=== PATIENT | female | born 1945 | race Two or more races ===

== ENCOUNTER 2025-06-11 11:24 | Inpatient (IN) | payer OTHER ==
[~2025-06-11] VITALS: Ht 165.1 cm; Wt 68.3 kg
--- NOTE | 2025-06-11 11:39 | ED.PDOC ---
Back pain HPI HPI Comments This is a 80 year old female HAIRA presenting to the ED with chief complaint of lower back pain s/p fall. EMS reports patient had gotten out of bed this morning and slipped, causing her to fall onto her bottom and then hit the back of her head against the floor. EMS relays that the patient is now experiencing lower back pain with associated abdominal pain. EMS states patient was able to ambulate with some assistance in getting up. Patient denies any LOC, dizziness, chest pain, headache, N/V, or SOB. 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: Denies all WOOD 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 Hx Family History Family History: Reviewed,noncontributory to illness Social History Smoker: Non-Smoker Alcohol: Denies ETOH Use Drugs: Denies Drug Use Lives In: Home Constitutional: denies: chills, diaphoresis, fatigue, fever, malaise, sweats, weakness, others EENTM: denies: blurred vision, double vision, ear bleeding, ear discharge, ear drainage, ear pain, ear ringing, eye pain, eye redness, hearing loss, mouth pain, mouth swelling, nasal discharge, nose bleeding, nose congestion, nose pain, photophobia, tearing, throat pain, throat swelling, voice changes, others Respiratory: denies: cough, hemoptysis, orthopnea, SOB at rest, shortness of breath, SOB with excertion, stridor, wheezing, others Cardiovascular: denies: chest pain, dizzy spells, diaphoresis, Dyspnea on exertion, edema, irregular heart beat, left arm pain, lightheadedness, palpitations, PND, syncope, others Gastrointestinal: reports: abdominal pain; denies: abdomen distended, blood streaked bowels, constipated, diarrhea, dysphagia, difficulty swallowing, hematemesis, melena, nausea, poor appetite, poor fluid intake, rectal bleeding, rectal pain, vomiting, others Genitourinary: denies: abnormal vagina bleeding, burning, dyspareunia, dysuria, flank pain, frequency, hematuria, incontinence, pain, , vagina discharge, urgency, others Neurological: denies: dizziness, fainting, headache, left sided numbness, left sided weakness, numbness, paresthesia, pre-existing deficit, right sided numb ness, right sided weakness, seizure, speech problems, tingling, tremors, weakness, others Musculoskeletal: reports: back pain; denies: gout, joint pain, joint swelling, muscle pain, muscle stiffness, neck pain, others Integumetry: denies: bruises, change in color, change in hair/nails, dryness, laceration, lesions, lumps, rash, wounds, others Allergic/Immunocompromised: denies: Difficulty Healing, Frequent Infections, Hives, Itching, others Hematologic/Lymphatic: denies: anemia, blood clots, easy bleeding, easy bruising, swollen glands, others Endocrine: denies: excessive hunger, excessive sweating, excessive thirst, excessive urination, flushing, intolerance to cold, intolerance to heat, unexplained weight gain, unexplained weight loss, others Psychiatric: denies: anxiety, bipolar disorder, depression, hopeless, panic disorder, schizophrenia, sleepless, suicidal, others All Other Systems: Reviewed and Negative Physical Exam General Appearance: No Apparent Distress, Obese HEENT: Normal ENT Inspection, Pharynx Normal, TMs Normal Neck: Full Range of Motion, Non-Tender, Normal, Normal Inspection Respiratory: Chest Non-Tender, Lungs Clear, No Accessory Muscle Use, No Respiratory Distress, Normal Breath Sounds Cardiovascular: No Edema, No JVD, No Murmur, No Gallop, Normal Peripheral Pulses, Regular Rate/Rhythm Breast Exam: Deferred Gastrointestinal: No Organomegaly, Non Tender, No Pulsatile Mass, Normal Bowel Sounds, Soft Genitalia: Deferred Pelvic: Deferred Rectal: Deferred Extremities: No calf tenderness, Normal capillary refill, No pedal edema Musculoskeletal : Location: Bilateral Extremity Location: Back Apperance: Limited ROM, Tenderness: Moderate Neurologic: Alert, coconut jelly roller II-XII nml as Tested, No Motor Deficits, Normal Affect, Normal Mood, No Sensory Deficits Cerebellar Function: Normal Reflexes: Normal Skin: Dry, Normal Color, Warm Lymphatic: No Adenopathy Was a procedure done? Was a procedure done?: No Back Pain Differential Dx Differential Diagnosis: Fracture, Musculoskeletal Pain, Pancreatits, Pyelonephritis, Urolithiasis X-Ray, Labs, Meds, VS Vital Signs Date Time Temp Pulse Resp B/P (MAP) Pulse Ox O2 Delivery O2 Flow Rate FiO2 06/11/25 14:28 98.4 95 16 166/75 (105) 98 98.4 06/11/25 11:49 98.0 106 20 134/88 99 98.0 Lab Test 06/11/25 11:50 Range/Units White Blood Count 5.3 4.4-10.8 10^3/uL Red Blood Count 5.04 4.0-5.20 10^6/uL Hemoglobin 15.8 12.2-16.2 g/dL Hematocrit 46.8 H 36.0-46.0 % Mean Corpuscular Volume 92.9 80.0-100.0 fL Mean Corpuscular Hemoglobin 31.3 28.0-32.0 pg Mean Corpuscular Hemoglobin Concent 33.7 32.0-36.0 g/dL Red Cell Distribution Width 13.8 11.8-14.3 % Platelet Count 163 140-450 10^3/uL Mean Platelet Volume 9.2 6.9-10.8 fL Neutrophils (%) (Auto) 72.4 37.0-80.0 % Lymphocytes (%) (Auto) 21.6 10.0-50.0 % Monocytes (%) (Auto) 4.8 0.0-12.0 % Eosinophils (%) (Auto) 0.8 0.0-7.0 % Basophils (%) (Auto) 0.4 0.0-2.0 % Neutrophils # (Auto) 3.8 1.6-8.6 10 ^3/uL Lymphocytes # (Auto) 1.1 0.4-5.4 10 ^3/uL Monocytes # (Auto) 0.3 0-1.3 10 ^3/uL Eosinophils # (Auto) 0 0-0.8 10 ^3/uL Basophils # (Auto) 0 0-0.2 10 ^3/uL Nucleated Red Blood Cells 0.4 % Sodium Level 146 H 136-145 mmol/L Potassium Level 3.8 3.5-5.1 mmol/L Chloride Level 108 H 98-107 mmol/L Carbon Dioxide Level 27 20-31 mmol/L Anion Gap 11 5-15 Blood Urea Nitrogen 13 9-23 mg/dL Creatinine 1.07 H 0.550-1.02 mg/dL Glomerular Filtration Rate Calc 52 >90 mL/min BUN/Creatinine Ratio 12.1 10.0-20.0 Serum Glucose 139 H 74-106 mg/dL Calcium Level 10.6 H 8.7-10.4 mg/dL Head CT indicates: No acute traumatic intracranial abnormality. Hypoattenuation in the right internal capsule / caudate may represent an age indeterminate infarct. Clinical correlation advised. LS-Spine CT indicates: 1. No fracture of the lumbar spine. 2. Degenerative disc disease and facet arthropathy with significant neural foraminal stenosis on the right at L3-L4 and L5-SThese findings May correspond to right lower extremity radicular symptoms in the L3 and L5 nerve root distributions. 3. Moderate spinal canal stenosis at L2-L3, L3-L4, and L4-L5. 4. Enlarged fibroid uterus. 5. Fecal retention in the colon suggestive of constipation. 6. Atherosclerotic vascular disease. The patient is being admitted at this time. At this time there is no sign of any fractures but there is a concern of the hypoattenuation in the right internal capsule A neurology consult will be obtained. The patient's CBC and chemistry panel are within normal limits except for creatinine of 1.07 The patient has no sign of any deficits. Images Reviewed?: Images reviewed and evaluated by me Time of 1ST Reevaluation: 15:16 Reevaluation 1ST: Unchanged Patient Education/Counseling: Diagnosis, Treatment, Prognosis Family Education/Counseling: No Family Present SEPSIS Sepsis Screen Physician Orders Electrocardigram (06/11/25 11:33) Head Without Contrast (06/11/25 11:33) Ls Spine Wo Contrast (06/11/25 11:33) Vital Signs Date Time Temp Pulse Resp B/P (MAP) Pulse Ox O2 Delivery O2 Flow Rate FiO2 06/11/25 14:28 98.4 95 16 166/75 (105) 98 98.4 06/11/25 11:49 98.0 106 20 134/88 99 98.0 Laboratory Tests Test 06/11/25 11:50 White Blood Count 5.3 10^3/uL (4.4-10.8) Departure 1 Departure Time of Disposition: 15:16 Impression: Primary Impression: History of fall Additional Impression: Autonomic dysfunction Disposition: ADMITTED INPATIENT Admit to: Med Surg Condition: Fair Critical Care Note Critical Care Time?: No Stability Stability form required: Yes Unstable for transfer: ED Physician Assesment (Clinical assesment) Heart Score Heart Score: Heart Score Response (Comments) Value History N/A 0 EKG N/A 0 Age N/A 0 Risk Factors N/A 0 Troponin N/A 0 Total 0 I personally scribed for DEBBI ENRIQUEZ MD ([email or web address]) on 06/11/25 at 11:39. Electronically submitted by Emeka El ([email or web address]). I personally scribed for DEBBI ENRIQUEZ MD ([email or web address]) on 06/11/25 at 13:48. Electronically submitted by Emeka El ([email or web address]). DEBBI ENRIQUEZ MD Jun 11, 2025 11:39
[2025-06-11 12:11] LABS: Hematocrit 46.8 % (36.0-46.0); Hemoglobin 15.8 g/dL (12.2-16.2); Mean Corpuscular Hemoglobin 31.3 pg (28.0-32.0); Mean Corpuscular Volume 92.9 fL (80.0-100.0); Nucleated Red Blood Cells % 0.4 %
[2025-06-11 12:24] LABS: Potassium 3.8 mmol/L (3.5-5.1)
[2025-06-11 12:25] LABS: Anion Gap 11 (5-15); Carbon Dioxide 27 mmol/L (20-31)
[2025-06-11 12:30] LABS: BUN/Creatinine Ratio 12.1 (10.0-20.0); Blood Urea Nitrogen 13 mg/dL (9-23)
[2025-06-11 12:36] LABS: Calcium 10.6 mg/dL (8.7-10.4); Chloride 108 mmol/L (98-107); Glucose 139 mg/dL (74-106); Sodium 146 mmol/L (136-145)
--- NOTE | 2025-06-11 12:48 | DVH ---
EXAM: CT HEAD WITHOUT CONTRAST INDICATION: fall TECHNIQUE: CT of the head without intravenous contrast. Radiation Dose : 1. Head: CT Dose: CTDI volume is 31.6 mGy. Dose-length product is 2566 mGy*cm The dose indicators for CT are the volume Computed Tomography (CT) Dose Index (CTDIvol) and the Dose Length Product (DLP), and are measured in units of mGy and mGy-cm, respectively. These indicators are not patient dose, but values generated from the CT scanner acquisition factors. The report includes radiation exposure data for exposures received during this examination. COMPARISON: None FINDINGS: There is no evidence of acute intracranial hemorrhage, extra-axial collection, mass effect, midline s hift, herniation or hydrocephalus. The ventricles, sulci and cisterns are age appropriate. Hypoattenuation in the right internal capsule/ caudate. Patchy periventricular and subcortical white matter hypoattenuation is nonspecific but may be related to small vessel ischemic disease. The visualized paranasal sinuses and mastoid air cells are clear. The surrounding soft tissues and osseous structures are unremarkable. IMPRESSION: No acute traumatic intracranial abnormality. Hypoattenuation in the right internal capsule / caudate may represent an age indeterminate infarct. Clinical correlation advised. Radiation optimization: All CT scans at this facility use at least one of these dose optimization dinorah hniques: automated exposure control mA and/or kV adjustment per patient size (includes targeted exam s where dose is matched to clinical indication) or iterative reconstruction.
--- NOTE | 2025-06-11 12:56 | DVH ---
EXAM: CT LS SPINE WO CONTRAST HISTORY: fall COMPARISON: None TECHNIQUE: Noncontrast axial CT images of the lumbar spine were performed. Sagittal and coronal refor matted images were obtained. This CT exam was performed using one or more of the following dose reduc tion techniques: Automated exposure control, adjustment of the mA and/or kv according to patient size , or the use of iterative reconstruction techniques. Radiation Dose: CT Dose: CTDI volume is 69.52 mGy. Dose-length product is 1183.87 mGy*cm FINDINGS: No fracture or listhesis are identified about the lumbar spine. There is [id number] degenerativ e disc disease and facet arthropathy with moderate spinal canal stenosis at L2-L3, L3-L4, and L4-L5. There is significant neural foraminal stenosis at L3-L4 on the right and L5-S1 on the right. The uter us is enlarged with multiple calcified lobulated fibroids present. There are bilateral posterolateral Hutch diverticula. There are atherosclerotic calcifications of the abdominal aorta and major branche s. There is fecal retention in the colon better appreciated on the brewery worker film. IMPRESSION: 1. No fracture of the lumbar spine. 2. Degenerative disc disease and facet arthropathy with significant neural foraminal stenosis on the right at L3-L4 and L5-SThese findings May correspond to right lower extremity radicular symptoms in t he L3 and L5 nerve root distributions. 3. Moderate spinal canal stenosis at L2-L3, L3-L4, and L4-L5. 4. Enlarged fibroid uterus. 5. Fecal retention in the colon suggestive of constipation. 6. Atherosclerotic vascular disease.
[2025-06-11] MEDS ORDERED: ONDANSETRON HCL 4 MG/2 ML VIAL IV PRN (17:45)
[2025-06-11] MEDS ORDERED: ACETAMINOPHEN 325 MG TAB PO PRN (17:45)
[2025-06-11] MEDS ORDERED: DEXTROSE (50%) 50ML SYRG IV PRN (18:00)
--- NOTE | 2025-06-11 18:23 | DVHHPRES ---
History of Present Illness Resident Creating Document: ANTONIETTA HULL RESIDENT History of Present Illness 80-year-old female with a past medical history of diabetes type 2 on insulin, hypertension came to the ER with complaints of lower back pain status post mechanical fall. Patient reports that she had gotten out of bed this morning and was trying to reach her walker which she has been using for the past 2 years, when she could not maintain balance and fell down and hit her head. She had no loss of consciousness, nausea, vomiting, chest pain, SOB or confusion after the fall. She also states that it is associated with back pain as well as abdominal pain which is generalized. vitals on admission temperature 98.4, pulse 95, respiratory rate 16, blood pressure 166/ mmHg, pulse oximetry 98% at room temperature. Labs showed WBC at 5 point he, hemoglobin 15.8, hematocrit 46.8, platelets at 163. Patient is being admitted for further evaluation and workup. PMH: Diabetes mellitus type 2, hypertension past surgical history: Bilateral cataract surgery, partial removal of thyroid family history: Reviewed and noncontributory to the case social history: Denies any alcohol intake, smoking, illicit drugs Allergies: gabapentin code status: Full code, patient states that she does not want any life-saving measures if she becomes vegetative over 5 minutes Review of Systems Allergies: Coded Allergies: Gabapentin (Verified Allergy, Unknown, 06/11/25) Medications Current Medications Medications Dose Ordered Sig/Riaz Route Start Time Stop Time Status Last Admin Dose Admin Ondansetron HCl 4 mg Q4HP PRN IV 06/11/25 17:45 Acetaminophen 650 mg Q6HP PRN PO 06/11/25 17:45 Enoxaparin Sodium 40 mg DAILY SC 06/11/25 17:45 Pantoprazole Sodium 40 mg DAILY@0600 PO 06/12/25 06:00 Diagnostic Test (Pha) 1 strip IQ4HR 06/11/25 20:00 Insulin Human Regular IQ4HR SC 06/11/25 20:00 Dextrose 50 ml UD PRN IV 06/11/25 18:00 Valsartan 320 mg DAILY PO 06/12/25 10:00 Amlodipine Besylate 5 mg DAILY PO 06/12/25 10:00 Exam Vital Signs Vital Signs Date Time Temp Pulse Resp B/P (MAP) Pulse Ox O2 Delivery O2 Flow Rate FiO2 06/11/25 14:28 98.4 95 16 166/75 (105) 98 98.4 Exam Pt is lying on bed General Appearance: Alert, Oriented X3, Cooperative, Not in acute distress HEENT: Atraumatic, Mucous membranes moist/pink Respiratory: Clear to auscultation, Normal air movement, No added sounds Cardiovascular: Regular rate, Normal S1, Normal S2, No murmurs Abdominal: Active bowel sounds, Soft, mild tenderness in the abdomen, generalized Extremities: No edema, Normal pulses, No tenderness/swelling Skin: No Significant rash, except past surgical scars Neuro: Normal speech, sensorimotor deficits none Psych/Mental Status: Mental status NL, Mood NL Nurse was there as molding plasterer during examination Labs/Xrays Labs Test 06/11/25 11:50 Range/Units White Blood Count 5.3 4.4-10.8 10^3/uL Red Blood Count 5.04 4.0-5.20 10^6/uL Hemoglobin 15.8 12.2-16.2 g/dL Hematocrit 46.8 H 36.0-46.0 % Mean Corpuscular Volume 92.9 80.0-100.0 fL Mean Corpuscular Hemoglobin 31.3 28.0-32.0 pg Mean Corpuscular Hemoglobin Concent 33.7 32.0-36.0 g/dL Red Cell Distribution Width 13.8 11.8-14.3 % Platelet Count 163 140-450 10^3/uL Mean Platelet Volume 9.2 6.9-10.8 fL Neutrophils (%) (Auto) 72.4 37.0-80.0 % Lymphocytes (%) (Auto) 21.6 10.0-50.0 % Monocytes (%) (Auto) 4.8 0.0-12.0 % Eosinophils (%) (Auto) 0.8 0.0-7.0 % Basophils (%) (Auto) 0.4 0.0-2.0 % Neutrophils # (Auto) 3.8 1.6-8.6 10 ^3/uL Lymphocytes # (Auto) 1.1 0.4-5.4 10 ^3/uL Monocytes # (Auto) 0.3 0-1.3 10 ^3/uL Eosinophils # (Auto) 0 0-0.8 10 ^3/uL Basophils # (Auto) 0 0-0.2 10 ^3/uL Nucleated Red Blood Cells 0.4 % Sodium Level 146 H 136-145 mmol/L Potassium Level 3.8 3.5-5.1 mmol/L Chloride Level 108 H 98-107 mmol/L Carbon Dioxide Level 27 20-31 mmol/L Anion Gap 11 5-15 Blood Urea Nitrogen 13 9-23 mg/dL Creatinine 1.07 H 0.550-1.02 mg/dL Glomerular Filtration Rate Calc 52 >90 mL/min BUN/Creatinine Ratio 12.1 10.0-20.0 Serum Glucose 139 H 74-106 mg/dL Calcium Level 10.6 H 8.7-10.4 mg/dL SEPSIS Sepsis Screen Date sepsis recognized/suspect: Jun 11, 2025 Time Sepsis recognized/suspect: 1124 Recent Procedure: No On Antibiotic Therapy: No Respiratory Rate >20: No Heart Rate >90: Yes Temp<36 C (96.8 F) or >38.3 C: No SBP <90 or MAP <65 mmHG: No New Acute Mental Status Change: No Is the patient on CPAP, BIPAP,: No Physician Orders Electrocardigram (06/11/25 11:33) Head Without Contrast (06/11/25 11:33) Ls Spine Wo Contrast (06/11/25 11:33) Code Status (06/11/25 17:45) Ondansetron Hcl (Zofran) (06/11/25 17:45) Fall Risk Precautions In Place QSHIFT (06/11/25 17:45) Complete Blood Count (06/12/25 04:00) Comprehensive Metabolic Panel (06/12/25 04:00) Cardiac Diet-2gna,Lofat,Lochol (06/11/25 Dinner) Pt Request For Service (06/12/25 08:00) Acetaminophen Tablet (Tylenol Tablet) (06/11/25 17:45) Enoxaparin Sodium (Lovenox) (06/11/25 17:45) Orthostatic Vital Signs (06/11/25 17:49) Admit (06/11/25 17:49) Neuro Checks Q2hrs Q2HR (06/11/25 17:49) Echo 2d Mode Cardiac Dop (06/11/25 17:49) B-Type Natriuretic Peptide (06/11/25 17:49) Troponin-I Hs (06/11/25 17:49) Troponin-I Hs (06/11/25 18:49) Troponin-I Hs (06/11/25 20:49) Thyroid Stimulating Hormone (06/11/25 17:49) Pantoprazole Tablet (Protonix Tablet) (06/12/25 06:00) Kub Abdomen Single View (06/11/25 17:49) Glucose Blood (Accu-Chek Comfort Curve T (06/11/25 20:00) Insulin R (Human) (Insulin R) (06/11/25 20:00) Dextrose 50% Syringe (06/11/25 18:00) Valsartan (Diovan) (06/12/25 10:00) Amlodipine Tablet (Norvasc Tablet) (06/12/25 10:00) Vital Signs Date Time Temp Pulse Resp B/P (MAP) Pulse Ox O2 Delivery O2 Flow Rate FiO2 06/11/25 14:28 98.4 95 16 166/75 (105) 98 98.4 06/11/25 11:49 98.0 106 20 134/88 99 98.0 Laboratory Tests Test 06/11/25 11:50 White Blood Count 5.3 10^3/uL (4.4-10.8) Assessment/Plan Assessment/Plan # mechanical fall # rule out presyncope causing above - orthostatic vitals - CT head: no acute traumatic intracranial abnormality, hypoattenuation in the right internal capsule /gout it may represent an age indeterminate infarct - CT lumbar spine shows: No fracture of the lumbar spine; Degenerative disc disease and facet arthropathy with significant neural foraminal stenosis on the right at L3-L4 and L5-S, These findings May correspond to right lower extremity radicular symptoms in the L3 and L5 nerve root distributions. - fall precautions - neuro checks to hourly - acetaminophen 650 mg p.o. q.6 PRN - Zofran 4 mg IV q.4 PRN - echo #Type 2 diabetes mellitus -A1c, pending -started on aggressive sliding scale insulin q.4 -Accu-Cheks #hypertension -Continue home medication amlodipine 5 mg p.o. daily -continue valsartan to 320 mg p.o. daily #Moderate spinal canal stenosis at L2-L3, L3-L4, and L4-L5. - physical therapy evaluation tomorrow # slow transit constipation - CT abdomen pelvis shows: Fecal retention in the colon suggestive of constipation. - KUB abdomen, pending # Atherosclerotic vascular disease. # Enlarged fibroid uterus. - continue to monitor - outpatient follow up GI prophylaxis: Protonix 40 mg p.o. daily DVT prophylaxis: Lovenox 40 mg subcutaneously daily scheduled Diet: cardiac diet Goals of care discussed with the patient for more than 27 minutes: Full code status Case discussed with Dr. Pena, patient and nurse. Plan discussed with: Patient My Orders Orders - ANTONIETTA HULL RESIDENT Procedure Category Date Status Time Code Status CODE 06/11/25 Transmitted 17:45 Ondansetron Hcl PHA 06/11/25 In Process (Zofran) 17:45 Fall Risk Precautions BRINA 06/11/[address] 17:45 Complete Blood Count LAB 06/12/25 Verified 04:00 Comprehensive LAB 06/12/25 Verified Metabolic Panel 04:00 Cardiac DIET 06/11/25 Transmitted Diet-2gna,Lofat,Lochol Dinner Pt Request For Service PT 06/12/25 Logged 08:00 Acetaminophen Tablet PHA 06/11/25 In Process (Tylenol Tablet) 17:45 Enoxaparin Sodium PHA 06/11/25 In Process (Lovenox) 17:45 Orthostatic Vital ORDERS 06/11/25 Transmitted Signs 17:49 Admit ADMIT 06/11/25 Transmitted 17:49 Neuro Checks Q2hrs BRINA 06/11/25 In Process 17:49 Echo 2d Mode Cardiac US 06/11/25 Logged DOP 17:49 B-Type Natriuretic LAB 06/11/25 In Process Peptide 17:49 Troponin-I Hs LAB 06/11/25 In Process 17:49 Troponin-I Hs LAB 06/11/25 Logged 18:49 Troponin-I Hs LAB 06/11/25 Logged 20:49 Thyroid Stimulating LAB 06/11/25 In Process Hormone 17:49 Pantoprazole Tablet PHA 06/12/25 In Process (Protonix Tablet) 06:00 Kub Abdomen Single XY 06/11/25 Taken View 17:49 Glucose Blood PHA 06/11/25 In Process (Accu-Chek Comfort 20:00 Insulin R (Human) PHA 06/11/25 In Process (Insulin R) 20:00 Dextrose 50% Syringe PHA 06/11/25 In Process 18:00 Valsartan (Diovan) PHA 06/12/25 In Process 10:00 Amlodipine Tablet PHA 06/12/25 In Process (Norvasc Tablet) 10:00 Date of Service: Jun 11, 2025 Billing Provider: MAXWELL PENA MD, SREYA RESIDENT Jun 11, 2025 18:23
--- NOTE | 2025-06-11 18:49 | DVH ---
Indication: eval for intraabd obstruction Technique: XY KUB ABDOMEN SINGLE VIEWXY Comparison: None FINDINGS/IMPRESSION: Moderate volume stool within the colon. No evidence for free intraperitoneal air. No pathological sue cifications. Pelvic vascular phleboliths. Moderate degenerate changes bilateral hips. Large calcified uterine leiomyoma.
[2025-06-11] MEDS: ENOXAPARIN SOD 40 MG/0.4 ML SYRINGE SC SCH (18:53)
[2025-06-11] MEDS: PANTOPRAZOLE 40 MG TAB PO ONE (18:53)
[2025-06-11 20:25] VITALS: TEMP 98.1
[2025-06-11 21:50] VITALS: O2SAT 98
[2025-06-11] MEDS: ACCU-CHEK COMFORT CURVE STRIP VI SCH (22:34)
[2025-06-11] MEDS: InsuLIN REG 1unit/0.01ml Soln (100units/ml) SC SCH (22:43)
[2025-06-12] MEDS: VALSARTAN 80 MG TAB PO SCH (00:57)
[2025-06-12 01:00] VITALS: BP 108/51; PULSE 81; RESP 18; O2SAT 97
[2025-06-12] MEDS ORDERED: PANTOPRAZOLE 40 MG TAB PO SCH (06:00)
--- NOTE | 2025-06-12 06:21 | DVHDSRES ---
Discharge Summary Date of Admission Resident Creating Document: ANTONIETTA HULL RESIDENT Jun 11, 2025 at 17:45 Date of Discharge: Jun 11, 2025 Admitting Diagnosis Mechanical fall due to presyncope Labs/Diagnostic Data: Laboratory Results Test 06/11/25 23:56 06/11/25 23:37 06/11/25 11:50 POC Glucose 253 mg/dl (70-106) Troponin I High Sensitivity 33 ng/L (</=34) White Blood Count 5.3 10^3/uL (4.4-10.8) Red Blood Count 5.04 10^6/uL (4.0-5.20) Hemoglobin 15.8 g/dL (12.2-16.2) Hematocrit 46.8 % (36.0-46.0) Mean Corpuscular Volume 92.9 fL (80.0-100.0) Mean Corpuscular Hemoglobin 31.3 pg (28.0-32.0) Mean Corpuscular Hemoglobin Concent 33.7 g/dL (32.0-36.0) Red Cell Distribution Width 13.8 % (11.8-14.3) Platelet Count 163 10^3/uL (140-450) Mean Platelet Volume 9.2 fL (6.9-10.8) Neutrophils (%) (Auto) 72.4 % (37.0-80.0) Lymphocytes (%) (Auto) 21.6 % (10.0-50.0) Monocytes (%) (Auto) 4.8 % (0.0-12.0) Eosinophils (%) (Auto) 0.8 % (0.0-7.0) Basophils (%) (Auto) 0.4 % (0.0-2.0) Neutrophils # (Auto) 3.8 10 ^3/uL (1.6-8.6) Lymphocytes # (Auto) 1.1 10 ^3/uL (0.4-5.4) Monocytes # (Auto) 0.3 10 ^3/uL (0-1.3) Eosinophils # (Auto) 0 10 ^3/uL (0-0.8) Basophils # (Auto) 0 10 ^3/uL (0-0.2) Nucleated Red Blood Cells 0.4 % Sodium Level 146 mmol/L (136-145) Potassium Level 3.8 mmol/L (3.5-5.1) Chloride Level 108 mmol/L (98-107) Carbon Dioxide Level 27 mmol/L (20-31) Anion Gap 11 (5-15) Blood Urea Nitrogen 13 mg/dL (9-23) Creatinine 1.07 mg/dL (0.550-1.02) Glomerular Filtration Rate Calc 52 mL/min (>90) BUN/Creatinine Ratio 12.1 (10.0-20.0) Serum Glucose 139 mg/dL (74-106) Hemoglobin A1c 8.9 % A1C (<5.7) Calcium Level 10.6 mg/dL (8.7-10.4) B-Type Natriuretic Peptide 26.85 pg/mL (0-100) Thyroid Stimulating Hormone (TSH) 1.34 uIU/mL (0.55-4.78) Other Laboratory Tests 06/11/25 11:50 Brief Hx & Hospital Course: 80-year-old female with a past medical history of diabetes type 2 on insulin, hypertension came to the ER with complaints of lower back pain status post mechanical fall. CT head was done which showed no acute traumatic intracranial abnormality, hypoattenuation in the right internal capsule /gout it may represent an age indeterminate infarct. CT lumbar spine showed No fracture of the lumbar spine; Degenerative disc disease and facet arthropathy with significant neural foraminal stenosis on the right at L3-L4 and L5-S, These findings May correspond to right lower extremity radicular symptoms in the L3 and L5 nerve root distributions. We admitted her for further workup. Fall precautions were kept in place, neuro checks were to be done hourly and we administered Zofran for the nausea and acetaminophen for pain. A1c was pending and we started aggressive sliding scale insulin as a blood glucose level was 313 and 253. Ortho static vitals were to be taken. We also had ordered an echo and continued patient's home medications but patient decided to leave against medical advice. We encouraged her to stay for further treatment/stabilization. Patient advised of the risks of leaving AMA. Patient verbalized understanding still the. Patient encouraged to return to the ER if symptoms do not improve or worsen. Operations or Procedures CT HEAD WITHOUT CONTRAST IMPRESSION: No acute traumatic intracranial abnormality. Hypoattenuation in the right internal capsule / caudate may represent an age indeterminate infarct. Clinical correlation advised. CT LS SPINE WO CONTRAST 1. No fracture of the lumbar spine. 2. Degenerative disc disease and facet arthropathy with significant neural foraminal stenosis on the right at L3-L4 and L5-SThese findings May correspond to right lower extremity radicular symptoms in the L3 and L5 nerve root distributions. 3. Moderate spinal canal stenosis at L2-L3, L3-L4, and L4-L5. 4. Enlarged fibroid uterus. 5. Fecal retention in the colon suggestive of constipation. 6. Atherosclerotic vascular disease. XY KUB ABDOMEN SINGLE VIEWXY Comparison: None FINDINGS/IMPRESSION: Moderate volume stool within the colon. No evidence for free intraperitoneal air. No pathological calcifications. Pelvic vascular phleboliths. Moderate degenerate changes bilateral hips. Large calcified uterine leiomyoma. Condition at Discharge: Undetermined Final Diagnosis/Problems List #mechanical fall #possible presyncope causing above #Type 2 diabetes mellitus #hypertension #Moderate spinal canal stenosis at L2-L3, L3-L4, and L4-L5. #slow transit constipation #Atherosclerotic vascular disease. #Enlarged fibroid uterus. Discharge Disposition: AMA Discharge Statement: "Patient was advised to return to the ER or call 911 if any headaches, dizziness, shortness of breath, chest pain, abdominal pain, bleeding, fevers, or worsening of medical condition. Patient was counseled about treatment plan, medications, possible side effects, patientverbalized understanding. All questions were answered to the best of my ability. This discharge took greater then 30 minutes in planning, reviewing documentation, counseling the patient, and discussing with other team members." ASSESSMENT ASSESSMENT Assessment Date of Service: Jun 12, 2025 Billing Provider: MAXWELL PENA MD, SREYA RESIDENT Jun 12, 2025 06:21
[2025-06-12] MEDS ORDERED: VALSARTAN 80 MG TAB PO SCH (10:00)
[2025-06-12] MEDS ORDERED: ALLOPURINOL 100 MG TAB PO SCH (10:00)
== END 2025-06-12 04:22 | disposition left against medical advice (07) | DRG 552 ==
LOC: ER 11:24 → EDBD 11:24 → OVERFLOW 17:45
PROVIDERS: ATTEND Emergency Medicine
DX: M48.061 Spinal stenosis, lumbar region without neurogenic claudication (principal); I10 Essential (primary) hypertension; I70.8 Atherosclerosis of other arteries; K59.01 Slow transit constipation; G90.89 Other disorders of autonomic nervous system; E11.9 Type 2 diabetes mellitus without complications; D25.9 Leiomyoma of uterus, unspecified; Z53.29 Procedure and treatment not carried out because of patient's decision for other reasons; M10.9 Gout, unspecified; Z91.81 History of falling; Z88.8 Allergy status to other drugs, medicaments and biological substances; Z79.4 Long term (current) use of insulin; Z98.42 Cataract extraction status, left eye; Z98.41 Cataract extraction status, right eye
CPT/HCPCS: 36415; 70450; 72131; 74018; 80048; 82962; 83036; 83880; 84443; 84484; 85025; G0378; J1815